=== PATIENT | male | born 1995 ===

== ENCOUNTER 2020-11-02 10:15 | Emergency (ER) | payer SELFPAY ==
[2020-11-02 10:26] VITALS: BP 140/86; PULSE 69; RESP 18; TEMP 36.8; O2SAT 97; BMI 24.3
--- NOTE | 2020-11-02 11:05 | ED_ITS ---
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 and is worried he will not be able to drive safely or do his work today, he has no numbness no weakness no paresthesias no radiation of pain, no other injury to his neck that he is aware of Related Data Previous Rx's Medication Instructions Recorded cyclobenzaprine 5 mg PO TID PRN #10 tab 11/02/20 ibuprofen 600 mg PO Q6H PRN #20 tab 11/02/20 Allergies Allergy/AdvReac Type Severity Reaction Status Date / Time No Known Allergies Allergy Verified 11/02/20 10:29 Review of Systems Review of Systems: Positive for neck pain Negatives are no headache no head injury no radiation of pain no numbness no weakness or paresthesias no chest pain no shortness of breath no difficulty breathing, no skin rash, no changes to bowel or bladder PMFSH Past Medical History Source: nursing notes reviewed Medical History (Updated 11/02/20 @ 11:09 by BEKAH Palmer) No known health problems Social History Social History Advance Directives: Yes Advance Directives Information Provided: Yes Advance Directives on File: No Physical Exam Vital Signs: Vital Signs: Last Vital Signs Temp 98.3 F 11/02/20 10:26 Pulse 69 11/02/20 10:26 Resp 18 11/02/20 10:26 BP 140/86 H 11/02/20 10:26 Pulse Ox 97 11/02/20 10:26 Body Mass Index 24.3 General appearance uncomfortable no acute distress A&O x3 cooperative The head is normocephalic Nimesh dramatic The neck had left-sided soft tissue tenderness in the lateral neck muscles as well as in the trapezius there is no bony tenderness, range of motion is limited by pain, there is no swelling no redness, skin is normal in appearance Chest is clear to auscultation bilaterally, no respiratory distress Extremities is full range of motion x4, gait is normal, undercar specialist strength is 5/5 in both hands and sensation is intact in both hands Skin no rash Neuro no focal deficit motor is 5 over 5 times for sensation is intact and symmetrical Course Course Course Narrative: Patient is treated for neck spasm and neck muscle strain and given a work note for a couple of days Discharge Plan Discharge Clinical Impression: Strain of neck muscle Qualifiers: Encounter type: initial encounter Qualified Code(s): S16.1XXA - Strain of muscle, fascia and tendon at neck level, initial encounter Patient Disposition: Home, Self-Care Additional Instructions: Neck strain is usually self-limited and gets better in a few days If needed you can follow with chiropractor or see primary care doctor for physical therapy referral The muscle relaxer can cause you to become drowsy so do not drive for 8 hours after taking it In addition to prescribe medicine extra-strength Tylenol can be helpful , available [id number] Return any time any concerns Prescriptions: New cyclobenzaprine 5 mg tablet 5 mg PO TID PRN (Reason: muscle spasm) Qty: 10 RF: 0 ibuprofen 600 mg tablet 600 mg PO Q6H PRN (Reason: pain) Qty: 20 RF: 0 Stand Alone Forms: Work/School Release Interventions: ED Discharge Assessment Last Done: 11/02/20 11:20
[2020-11-02] MEDS: Acetaminophen 325 MG TABLET 650 MG PO (11:16)
[2020-11-02] MEDS: Ketorolac Tromethamine 30 MG/ML VIAL IM (11:17)
== END 2020-11-02 11:23 | disposition home or self-care (01) ==
PROVIDERS: Emergency Provider Emergency Medicine
DX: S16.1XXA Strain of muscle, fascia and tendon at neck level, initial encounter (principal); X50.1XXA Overexertion from prolonged static or awkward postures, initial encounter; Y93.84 Activity, sleeping; Y92.013 Bedroom of single-family (private) house as the place of occurrence of the external cause; Y99.9 Unspecified external cause status
CPT/HCPCS: 96372; 99283; 99284; J1885

== ENCOUNTER 2020-11-30 10:43 | Outpatient (REF) | payer OTHER, SELFPAY | END 2020-11-30 10:44 | disposition home or self-care (01) | LOC: HO.LAB 10:43 | PROVIDERS: Visit Provider Internal Medicine | DX: Z20.822 Contact with and (suspected) exposure to COVID-19 (principal) | CPT/HCPCS: 36415; C9803; U0003; U0005 ==

== ENCOUNTER 2020-12-15 10:24 | Emergency (ER) | payer SELFPAY ==
--- NOTE | ~2020-12-15 | XR_ITS ---
EXAMINATION: XR CHEST CLINICAL INFORMATION: Shortness of breath. Covid positive. COMPARISON: Previous chest x-ray January 2013 TECHNIQUE: Frontal view of the chest was obtained. FINDINGS: No significant abnormality is noted involving the heart, lungs, mediastinum, bony thorax or soft tissues. XR/XR chest 1V IMPRESSION: Unremarkable examination.
--- NOTE | 2020-12-15 10:43 | ED.CHESTPAIN ---
HPI - Chest Pain General Chief Complaint: Dyspnea Stated Complaint: sob Time Seen by Provider: 12/15/20 10:43 Source: patient Mode of arrival: ambulatory Limitations: no limitations History of Present Illness HPI narrative: Was COVID positive 14 days ago, still with chest pain and shortness of breath complaint: chest pain Onset (ago): day(s) Timing of current episode: constant Onset: during rest Pain location: left chest Pain radiation: none Severity: mild Quality: tightness Related Data Previous Rx's Medication Instructions Recorded cyclobenzaprine 5 mg PO TID PRN #10 tab 11/02/20 ibuprofen 600 mg PO Q6H PRN #20 tab 11/02/20 Allergies Allergy/AdvReac Type Severity Reaction Status Date / Time No Known Allergies Allergy Verified 11/02/20 10:29 Review of Systems Constitutional: Constitutional: Reports no additional constitutional complaints Eyes: Eyes: Reports no additional eye complaints ENT: Denies dizziness Cardiovascular: Cardiovascular: Reports no additional cardiovascular complaints Respiratory: Respiratory: Reports as per HPI Gastrointestinal: Gastrointestinal: Reports no additional gastrointestinal complaints Musculoskeletal: Musculoskeletal: Reports no additional musculoskeletal complaints Integumentary/Breasts: Skin/Breast: Denies rash Neurologic: Reports system reviewed and no additional complaints, except as documented, Denies dizziness and Denies Sensory deficit (Neuro) Psychiatric: Psychiatric: Denies anxiety PMFSH Past Medical History Medical History No known health problems Social History Social History Smoking Status: Never smoker Use of substances other than those prescribed or required for medical reasons: No Advance Directives: Yes Advance Directives Information Provided: No Advance Directives on File: No Physical Exam Vital Signs: Vital Signs: Last Vital Signs Temp 98.5 F 12/15/20 10:46 Pulse 80 12/15/20 10:46 Resp 17 12/15/20 10:46 BP 118/76 12/15/20 10:46 Pulse Ox 98 12/15/20 10:46 Body Mass Index 28.7 Const: General: healthy appearing Nutritional Appearance: average body habitus Orientation/consciousness: oriented to person and patient oriented x3 Limitations: no limitations HENMT: Head: Yes normal to inspection Ears: external ears normal General nose exam: Normal external nose present Mouth: Normal oral and palatal mucosa present and oropharynx normal Throat: Yes posterior oropharynx normal Eyes: General: appearance normal, both eyes and all related structures Neck: Other: supple Neck: Yes normal visual inspection Chest: Chest palpation & inspection: normal inspection of the chest Resp: Auscultation: clear to auscultation bilaterally Cardio: Jugular venous distension: no JVD Rate: regular rate Rhythm: regular rhythm Heart sounds: S1 normal heart sound present and S2 normal heart sound present GI: Inspection: Yes normal to inspection Palpation (GI): Soft to palpation, nontender and No hepatosplenomegaly present Auscultation: normal bowel sounds : General: Yes no CVA tenderness Back/Spine/Pelvis: Back: no CVA tenderness Skin: General skin exam: no rashes or lesions noted Neuro: General: oriented to person and patient oriented x3 Cranial nerves: Yes CN's II-XII intact bilaterally Motor exam (neuro): 5/5 motor strength present throughout Sensory Exam: No Sensory deficit (Neuro) Extrem: General: Yes normal to inspection Psych: Appearance: grossly normal MDM - Chest Pain Imaging Data Chest x-ray: Radiologist's impression: no infiltrate ECG Data ECG #1: Attestation: I personally reviewed and interpreted this ECG as follows: Interpretation: normal sinus rate 70, no st or twave changes Discharge Plan Discharge Clinical Impression: 2019 novel coronavirus disease (COVID-19) Patient Disposition: Home, Self-Care Additional Instructions: Patient is 14 days post quarantine, may return to work Prescriptions: No Action cyclobenzaprine 5 mg tablet 5 mg PO TID PRN (Reason: muscle spasm) Qty: 10 RF: 0 ibuprofen 600 mg tablet 600 mg PO Q6H PRN (Reason: pain) Qty: 20 RF: 0
--- NOTE | 2020-12-15 10:44 | ECG_ITS ---
Test Reason : CEST TIGHTNESS Blood Pressure : / mmHG Vent. Rate : 071 BPM Atrial Rate : 071 BPM P-R Int : 116 ms QRS Dur : 094 ms QT Int : 362 ms P-R-T Axes : 021 044 041 degrees QTc Int : 393 ms Normal sinus rhythm Normal ECG No previous ECGs available Referred By: Harjit Meng Electronically Signed By:JUAN PISANO MD
[2020-12-15 10:46] VITALS: BP 118/76; PULSE 80; RESP 17; TEMP 36.9; O2SAT 98; BMI 28.7
== END 2020-12-15 12:16 | disposition home or self-care (01) ==
PROVIDERS: Emergency Provider Emergency Medicine
DX: R07.9 Chest pain, unspecified (principal); Z86.16 Personal history of COVID-19
CPT/HCPCS: 71045; 93005; 99283; 99284

== ENCOUNTER 2023-04-08 13:05 | Emergency (ER) | payer MEDICAID, SELFPAY ==
[2023-04-08 13:23] VITALS: BP 136/88; PULSE 78; RESP 19; TEMP 36.5; O2SAT 98; BMI 31.3
--- NOTE | 2023-04-08 13:24 | ED_ITS ---
HPI - Ear Problem General Chief complaint: Ear Problems Stated complaint: r ear pain Time Seen by Provider: 04/08/23 13:31 Source: patient Mode of arrival: ambulatory History of Present Illness HPI Narrative: 27yo M w/no significant PMHx c/o right ear pain x 3 days. Admits was on vacation swimming in [place], ear now feels clogged. Has been using OTC drops without relief. Denies fever/chills, sore throat, hearing loss, drainage from ear MD Complaint: ear pain Location: right ear Related Data Previous Rx's Medication Instructions Recorded cyclobenzaprine 5 mg tablet 5 mg PO TID PRN muscle spasm #10 11/02/20 tabs ibuprofen 600 mg tablet 600 mg PO Q6H PRN pain #20 tabs 11/02/20 amoxicillin 875 mg-potassium 1 tab PO BID 7 days #14 tabs 04/08/23 clavulanate 125 mg tablet ciprofloxacin 0.3 %-dexamethasone 4 drp otic (ears) BID 7 days #7.5 04/08/23 0.1 % ear drops,suspension mL (Ciprodex) cefdinir 300 mg capsule 300 mg PO Q12H 10 days #20 caps 04/15/23 ibuprofen 600 mg tablet 600 mg PO Q8H PRN pain #20 tabs 04/15/23 Allergies Allergy/AdvReac Type Severity Reaction Status Date / Time No Known Allergies Allergy Verified 04/15/23 08:18 Review of Systems Review of Systems: Constitutional: No Fever, No Chills ENT/Mouth: + Ear Pain, No Nasal Congestion, No Sinus Pain, No Hoarseness, No sore throat, No Rhinorrhea, No Swallowing Difficulty Cardiovascular: No Chest Pain, No SOB Respiratory: No Cough, No Sputum, No Wheezing Musculoskeletal: No joint pain, No Myalgias, No Joint Swelling Skin: No Skin Lesions, No rash Neuro: No Weakness, Yes all other systems are reviewed and are negative Constitutional: Constitutional: Reports as per [facility] Past Medical History Attestation statement: The following information was validated with the patient. Source: old records reviewed Medical History No known health problems Social History Social History Advance Directives: No Physical Exam Vital Signs: Vital Signs: Last Vital Signs Temp 97.7 F 04/08/23 13:23 Pulse 78 04/08/23 13:23 Resp 19 04/08/23 13:23 BP 136/88 04/08/23 13:23 Pulse Ox 98 04/08/23 13:23 O2 Del Method Room Air 04/08/23 13:23 BMI result Body Mass Index 31.3 Const: General: cooperative, healthy appearing, no acute distress, alert and awake Orientation/consciousness: patient oriented x3 Limitations: no limitations HEENT: Head: Yes normal to inspection and Yes atraumatic Ears: hearing grossly normal bilaterally, external ears normal, mastoids normal, Abnormal EAC present excessive cerumen on the right, erythema on the right, edema on the right and EAC tenderness on the right; no foreign body, external ear abnormal auricular tenderness on the right, hearing grossly not impaired and unable to visualize TM on the right General nose exam: Normal external nose present Face and sinus: Yes normal facial exam Mouth: Normal oral and palatal mucosa present Throat: Yes posterior oropharynx normal, Yes tonsils normal, Yes uvula midline and No peritonsillar mass Eyes: General: appearance normal, both eyes and all related structures EOM: EOMs intact bilaterally Neck: Neck: Yes normal visual inspection and Yes no meningeal signs Resp: Effort & Inspection: normal respiratory effort and no respiratory distress Cardio: Rate: regular rate Skin: Rashes: no rashes Wounds: no wounds Neuro: General: patient oriented x3, tone normal and no meningeal signs Gait exam (Neuro): Normal gait present Extrem: General: Yes normal to inspection Medical Decision Making Medical Decision Making MDM Narrative: 27yo M w/no significant PMHx c/o right ear pain x 3 days. On exam vital signs stable, NAD, nontoxic appearing, right ear with auricle/external tenderness, cerumen noted in canal, partially cleared with curette, canal edema noted. Mastoids WNL. Unable to fully clear cerumen impaction, patient states pain is deeper. With shared decision-making will treat for both otitis externa and media. Low suspicion for mastoiditis, chronic otitis externa, strep Plan: Topical and p.o. antibiotics Results discussed with patient including worrisome signs and symptoms and strict return precautions, and when to return to the emergency department. They verbalized understanding and feel safe for discharge at this time. Differential Diagnosis Differential Diagnoses: The differential diagnosis associated with the presentation includes As above Admission/Observation Consideration of admission/observation: Escalation of care including admission/observation considered Tests considered The following testing was considered but not selected: As above Discharge Plan Discharge Clinical Impression: Otitis externa, Otitis media Patient Disposition: Home, Self-Care Instructions: Otitis Externa (DC), Ear Infection (ED) Additional Instructions: Augmentin as an oral antibiotic please take as prescribed. Ciprodex are antibiotic drops Take Tylenol /Motrin for pain Avoid water in the ear If symptoms persist or worsening of copious drainage from the ear, fever chills return to the ED Prescriptions: New ciprofloxacin-dexamethasone [Ciprodex] 0.3-0.1 % drops,suspension 4 drp otic (ears) BID 7 Days Qty: 7.5 0RF amoxicillin-pot clavulanate 875-125 mg tablet 1 tab PO BID 7 Days Qty: 14 0RF No Action cyclobenzaprine 5 mg tablet 5 mg PO TID PRN (Reason: muscle spasm) Qty: 10 0RF ibuprofen 600 mg tablet 600 mg PO Q6H PRN (Reason: pain) Qty: 20 0RF cefdinir 300 mg capsule 300 mg PO Q12H 10 Days Qty: 20 0RF ibuprofen 600 mg tablet 600 mg PO Q8H PRN (Reason: pain) Qty: 20 0RF Referrals: Physician,Unknown J [Physician] - 3 days Interventions: ED Discharge Assessment Last Done: 04/08/23 13:37 Discharge Date/Time: 04/08/23 13:45
== END 2023-04-08 13:45 | disposition home or self-care (01) ==
LOC: HO.ED 13:38
PROVIDERS: Emergency Provider Emergency Medicine
DX: H60.91 Unspecified otitis externa, right ear (principal); H66.91 Otitis media, unspecified, right ear; H92.01 Otalgia, right ear
CPT/HCPCS: 99283

== ENCOUNTER 2023-04-11 07:08 | Emergency (ER) | payer MEDICAID, SELFPAY ==
[2023-04-11 07:13] VITALS: BP 137/86; PULSE 110; RESP 19; TEMP 37; O2SAT 98; BMI 31.2
--- NOTE | 2023-04-11 07:33 | ED.GENADULT ---
HPI - General Adult General Chief complaint: Ear Problems Stated complaint: R Ear Pain ? Infection Time Seen by Provider: 04/11/23 07:33 Source: patient Mode of arrival: ambulatory Limitations: no limitations History of Present Illness HPI narrative: Patient is a 27 year old assigned male at with a history of otitis media and otitis externa diagnosed on 04/08/2023 presenting to the emergency department today with continued right ear pain. Patient states that 3 days ago he was seen and diagnosed with otitis media and externa of the right ear and given drops and oral medication. Patient states that he has been using his medication as prescribed but continues to have right sided ear pain. Patient denies any dizziness, lightheadedness, abdominal pain, nausea, vomiting, fever, chills, blurry vision, double vision, loss of vision, chest pain, difficulty breathing, shortness of breath, back pain, night sweats, pain with urination, increased urinary frequency, increased urinary urgency, blood in his urine or stool, syncope or a near syncopal episode, recent trauma or falls, bowel incontinence, bladder incontinence, bowel retention, bladder retention, or any other complaints at this time. Onset (ago): day(s) Location: right (ear) Radiation: non-radiation Severity: mild Severity scale (1-10): 3 Quality: aching and dull Pain Consistency: constant Relieving factors: none Exacerbating factors: none Associated symptoms: denies other symptoms Treatments prior to arrival: other (antibiotic drops and oral antibiotic) Related Data Previous Rx's Medication Instructions Recorded cyclobenzaprine 5 mg tablet 5 mg PO TID PRN muscle spasm #10 11/02/20 tabs ibuprofen 600 mg tablet 600 mg PO Q6H PRN pain #20 tabs 11/02/20 amoxicillin 875 mg-potassium 1 tab PO BID 7 days #14 tabs 04/08/23 clavulanate 125 mg tablet ciprofloxacin 0.3 %-dexamethasone 4 drp otic (ears) BID 7 days #7.5 04/08/23 0.1 % ear drops,suspension mL (Ciprodex) Allergies Allergy/AdvReac Type Severity Reaction Status Date / Time No Known Allergies Allergy Verified 04/11/23 07:13 Review of Systems Constitutional: Constitutional: Reports no additional constitutional complaints, Denies chills, Denies fever(s) and Denies night sweats Eyes: Eyes: Reports no additional eye complaints, Denies blurry vision, Denies change in vision, Denies diplopia, Denies eye discharge, Denies loss of vision and Denies eye pain ENT: Denies dizziness Comments: right ear pain Cardiovascular: Cardiovascular: Reports no additional cardiovascular complaints, Denies chest pain, Denies lightheadedness, Denies Loss of Consciousness and Denies dyspnea Respiratory: Respiratory: Reports no additional respiratory complaints and Denies dyspnea Gastrointestinal: Gastrointestinal: Reports no additional gastrointestinal complaints, Denies abdominal pain, Denies melena, Denies hematochezia, Denies change in bowel habits and Denies change in stool character Genitourinary: Genitourinary: Reports no additional male genitourinary complaints, Denies hematuria, Denies oliguria, Denies difficulty urinating, Denies dysuria, Denies urinary frequency, Denies urinary hesitancy, Denies urinary incontinence and Denies urinary urgency Musculoskeletal: Musculoskeletal: Reports no additional musculoskeletal complaints, Denies numbness and Denies tingling Neurologic: Denies dizziness, Denies loss of vision, Denies numbness and Denies tingling Psychiatric: Psychiatric: Reports no additional psychiatric complaints Endocrine: Endocrine: Reports no additional endocrine complaints Hematologic/Lymphatic: Hematologic/Lymphatic: Reports no additional hematologic/lymphatic complaints Allergic/Immunologic: Allergic/Immunologic: Reports no additional allergic/immunologic complaints PMFSH Past Medical History Attestation statement: The following information was validated with the patient. Source: old records reviewed and nursing notes reviewed Medical History (Updated 04/11/23 @ 09:49 by BEKAH Dave) No known health problems Social History Social History Advance Directives: No Advance Directives Information Provided: No Physical Exam ED Vital Signs: Vital Signs - 24 hr 04/11/23 07:13 Temperature 98.6 F Pulse Rate 110 H Respiratory Rate 19 Blood Pressure 137/86 Pulse Oximetry 98 BMI result Body Mass Index 31.2 Const General: cooperative, no acute distress, alert and awake Nutritional Appearance: well nourished Orientation/consciousness: patient oriented x3 Limitations: no limitations HENMT Head: Yes normal to inspection and Yes atraumatic Ears: hearing grossly normal bilaterally, external ears normal, Abnormal EAC present other (debris present in the right auditory canal) and TM abnormal erythematous on the right General nose exam: Normal external nose present, no nasal discharge noted and no epistaxis Face and sinus: Yes normal facial exam, No abrasion and No laceration Mouth: Normal oral and palatal mucosa present, no drooling and no muffled voice Eyes General: appearance normal, both eyes and all related structures Periorbital: periorbital findings normal Eyelids: Yes eyelids normal Conjunctivae: conjunctivae normal Pupils: Equal, round and reactive pupils present EOM: EOMs intact bilaterally Neck Neck: Yes normal visual inspection, Yes full ROM and Yes no lymphadenopathy Chest Chest palpation & inspection: normal inspection of the chest Resp Effort & Inspection: normal respiratory effort and able to speak in complete sentences GI Inspection: Yes normal to inspection Neuro General: patient oriented x3 and moves all extremities Cranial nerves: Yes Equal, round and reactive pupils present Cognition (Neuro): normal cognition Motor exam (neuro): 5/5 motor strength present throughout Sensory Exam: Normal double simultaneous stimulation for sensation Coordination: [id number] test normal Extrem General: Yes normal to inspection, Yes full ROM and Yes capillary refill normal Psych Appearance: grossly normal Mental Status: mental status grossly normal Affect: normal affect Attitude: cooperative Thought process: Normal thought process present Thought content: Normal thought content present Insight: Good insight present (Psych) Procedures Ear Wax Removal Right Ear: TM Examination: TM(s) erythematous Ear Canal Exam: atraumatic Patient Tolerated Procedure: well Complications: no problems Technique: ear canal irrigated Additional Comments: mixture of debris and cerumen removed from the right ear Medical Decision Making Medical Decision Making MDM Narrative: Patient is a 27 year old assigned male at with a history of otitis media and otitis externa of the right ear diagnosed on 04/08/2023 presenting to the emergency department today with persistent right ear pain. Patient's physical exam was as noted in the physical exam portion of this chart. Patient's exam is not consistent with mastoiditis or worsening ear infection. Patient's external and internal infection persists. Due to the debris in the patient's ear, there is concern the drops are not being as efficacious as they could be. Right ear debris was removed / flushed out, without incident. Patient tolerated the procedure well. I explained my physical exam findings to the patient. I answered all questions asked by the patient. I stressed the importance of the patient taking his medication as prescribed. I stressed the importance of the patient following up with his primary care provider and an ENT. I stressed the importance of the patient returning to the emergency department immediately if his symptoms were to worsen or if he were to develop any dizziness, shortness of breath, difficulty breathing, chest pain, blurry vision, loss of vision, nausea, vomiting, abdominal pain, fever, chills, back pain, or any other complaints. Patient verbalized agreement and understanding with this treatment plan and discharge. Differential Diagnosis Differential Diagnoses: The differential diagnosis associated with the presentation includes Otitis media Otitis externa Mastoiditis - not consistent with the patient's clinical presentation Prescription Management I considered prescription management with: Antibiotic (patient previously prescribed antibiotics - to continue on those.) Discharge Plan Discharge Clinical Impression: Otitis externa, Otitis media Patient Disposition: Home, Self-Care Instructions: Otitis Externa (DC), Ear Infection (ED) Additional Instructions: Continue taking your medication as prescribed. Follow up with your primary care provider and an ENT. Return to the emergency department immediately if your symptoms worsen or if you develop any dizziness, shortness of breath, difficulty breathing, chest pain, blurry vision, loss of vision, nausea, vomiting, abdominal pain, fever, chills, back pain, or any other complaints. Prescriptions: No Action cyclobenzaprine 5 mg tablet 5 mg PO TID PRN (Reason: muscle spasm) Qty: 10 0RF ibuprofen 600 mg tablet 600 mg PO Q6H PRN (Reason: pain) Qty: 20 0RF ciprofloxacin-dexamethasone [Ciprodex] 0.3-0.1 % drops,suspension 4 drp otic (ears) BID 7 Days Qty: 7.5 0RF amoxicillin-pot clavulanate 875-125 mg tablet 1 tab PO BID 7 Days Qty: 14 0RF Referrals: [facility] [Provider Group] (Call to establish and follow up with an ENT. ) [facility] [Provider Group] (Call to establish and follow up with a primary care provider. If you already have a primary care provider, please follow up with them.) [facility] [Provider Group] (Call to establish and follow up with a primary care provider. If you already have a primary care provider, please follow up with them.) [facility] Primary [facility] [Provider Group] (Call to establish and follow up with a primary care provider. If you already have a primary care provider, please follow up with them.) Stand Alone Forms: Work/School Release Interventions: ED Discharge Assessment Last Done: 04/11/23 09:01 Discharge Date/Time: 04/11/23 09:03 Print Language: Lao
--- NOTE | 2023-04-11 08:57 | PC.NURSE ---
reviewed discharge instructions with pt.
== END 2023-04-11 09:03 | disposition home or self-care (01) ==
PROVIDERS: Emergency Provider Emergency Medicine Emergency Medical Services
DX: H60.91 Unspecified otitis externa, right ear (principal); H66.91 Otitis media, unspecified, right ear
CPT/HCPCS: 99283; 99284

== ENCOUNTER 2023-04-15 08:05 | Emergency (ER) | payer MEDICAID, SELFPAY ==
--- NOTE | ~2023-04-15 | CT_ITS ---
EXAMINATION: CT INNER EAR TEMPORAL BONES CLINICAL INFORMATION: Right ear infection. Worsening pain. Tenderness. COMPARISON: None available. TECHNIQUE: Multidetector helical imaging was performed in the axial plane with generation of oblique axial and coronal reformatted projections. This CT examination was performed using dose optimization techniques as appropriate, variously including the following: *Automated exposure control. *Adjustment of mA and/or kV according to patient size (this includes techniques or standardized protocols for targeted exams where dose is matched to indication/reason for exam; i.e. extremities or head). *Use of iterative reconstruction technique. DLP: 250 mGy-cm FINDINGS: Right Temporal Bone: No overt periauricular soft tissue edema/collection. Near complete opacification of the right external auditory canal. Potential mild irregularity of the osseous structure of the external auditory canal without overt erosive changes. Minimal thickening of the tympanic membrane. The ossicular chain is intact. Mild mucosal thickening throughout the middle ear cavity. There is partial opacification of [place] space. The scutum remains sharp. The mastoid antrum remains patent. Moderate diffusion throughout the remaining mastoid air cells. The sigmoid plate is intact. Normal ossification of the bony labyrinth. Normal appearance of the cochlea, vestibule, and semicircular canals. The vestibular aqueduct is normal. Normal appearance of the labyrinthine, geniculate, tympanic, and mastoid segments of the facial nerve. Normal appearance of the internal auditory canal. The cochlear aperture is normal. Normal appearance of the carotid canal and jugular foramen. Left Temporal Bone: The external auditory canal is normal in appearance. The tympanic membrane is normal. The ossicular chain is intact. No soft tissue abnormality within the middle ear. The mastoid antrum and additional mastoid air cells remain well aerated. The sigmoid plate is intact. Normal ossification of the bony labyrinth. Normal appearance of the cochlea, vestibule, and semicircular canals. The vestibular aqueduct is normal. Normal appearance of the labyrinthine, geniculate, tympanic, and mastoid segments of the facial nerve. Normal appearance of the internal auditory canal. The cochlear aperture is normal. Normal appearance of the carotid canal and jugular foramen. Other: The temporomandibular joints are normal in appearance bilaterally. No demonstrated intracranial abnormalities of the visualized skull base. No significant abnormalities of the visualized orbits. The visualized paranasal sinuses are clear. No abnormal contours of the visualized pharynx. CT/CT mastoid IMPRESSION: 1. Near complete opacification of the right external auditory canal. Potential mild irregularity of the osseous structure of the right external auditory canal without overt erosive change. Mild mucosal thickening throughout the right middle ear cavity. Moderate right-sided mastoid effusion. Findings are suggestive of sequela of nonspecific otitis externa and media. 2. Normal CT appearance of the left-sided temporal bone.
[2023-04-15 08:18] VITALS: BP 118/83; PULSE 72; RESP 16; TEMP 36.6; O2SAT 98; BMI 31.7
[2023-04-15] MEDS: NaPROXEN 500 MG TABLET PO (09:56)
[2023-04-15 09:58] LABS: MANUAL DIFF FLAG NO
[2023-04-15 10:00] LABS: Basophils Percent Auto 0.6 % (0-2); Eosinophils Absolute Auto 0.3 X10*3/uL (0.0-0.4); Eosinophils Percent Auto 4.7 % (0-4); Hematocrit 45.1 % (42.0-52.0); Hemoglobin 14.8 g/dl (14.0-18.0); Imm Gran Abs Auto 0.04 X10*3/uL (0.00-0.03); Imm Gran Pct Auto 0.6 % (0.0-0.4); Lymphocytes Percent Auto 31.9 % (20-40); Mean Corpuscular HGB Conc 32.8 g/dl (31.0-36.0); Mean Corpuscular Hemoglobin 28.5 pg (27.0-33.0); Mean Corpuscular Volume 86.9 fL (80.0-98.0); Mean Platelet Volume 9.6 fL (9.4-12.4); Monocytes Absolute Auto 0.7 X10*3/uL (0.1-1.2); Monocytes Percent Auto 11.7 % (2-11); Neutrophils Absolute Auto 3.1 x10*3/uL (2.0-8.3); Neutrophils Percent Auto 50.5 % (45-73); Platelet Count 248 X10*3/uL (160-400); Red Blood Count 5.19 X10*6/uL (4.60-5.80); Red Cell Distribution Width 13.3 % (11.0-16.0); White Blood Count 6.2 X10*3/uL (4.8-10.8)
[2023-04-15 10:10] LABS: Anion Gap 13 (12-20); Blood Urea Nitrogen 12 mg/dL (9-16); C Reactive Protein 0.14 mg/dL (< or = 0.50); Calcium 9.1 mg/dL (8.4-10.2); Carbon Dioxide 24 mmol/L (22-29); Chloride 108 mmol/L (96-108); Creatinine Clr Calc Pharmacy 156.3; Estimated Glomerular Filt Rate > 60; Glucose Random 98 mg/dL (60-115); Potassium 4.2 mmol/L (3.3-5.1); Sodium 141 mmol/L (135-145)
--- NOTE | 2023-04-15 10:47 | ED.EAR ---
HPI - Ear Problem General Chief complaint: Ear Problems Stated complaint: Ear pain Time Seen by Provider: 04/15/23 09:04 Source: patient Mode of arrival: ambulatory Limitations: no limitations History of Present Illness HPI Narrative: patient is a 27 year male presents emergency department for re-evaluation of persistent right ear pain. He was seen in the emergency department 04/08/2023 and 04/11/2023 and diagnosed with acute otitis media / otitis externa. He has completed a 7 day course of Augmentin in addition to Ciprodex ear drops without any improvement in symptoms. He reports increased pain to the right ear that he feels extending into his jaw. Denies any drainage from the ear. Reports muffled hearing. Denies fevers or chills. Denies any neck pain, chest pain, shortness of breath, difficulty breathing. Denies any URI symptoms. Related Data Previous Rx's Medication Instructions Recorded cyclobenzaprine 5 mg tablet 5 mg PO TID PRN muscle spasm #10 11/02/20 tabs ibuprofen 600 mg tablet 600 mg PO Q6H PRN pain #20 tabs 11/02/20 amoxicillin 875 mg-potassium 1 tab PO BID 7 days #14 tabs 04/08/23 clavulanate 125 mg tablet ciprofloxacin 0.3 %-dexamethasone 4 drp otic (ears) BID 7 days #7.5 04/08/23 0.1 % ear drops,suspension mL (Ciprodex) cefdinir 300 mg capsule 300 mg PO Q12H 10 days #20 caps 04/15/23 ibuprofen 600 mg tablet 600 mg PO Q8H PRN pain #20 tabs 04/15/23 Allergies Allergy/AdvReac Type Severity Reaction Status Date / Time No Known Allergies Allergy Verified 04/15/23 08:18 Review of Systems Review of Systems: Constitutional: No weight loss. No fever. No chills. No weakness. No fatigue. Eye: No swelling. No redness. ENT: No sore throat. No rhinorrhea. No nasal congestion. No sore throat. No difficulty swallowing. Positive ear pain as per HPI Skin: No rash. No itching. Cardiovascular: No chest pain. No chest pressure. No palpitations. No pedal edema. Respiratory: No shortness of breath. No cough. No sputum production. Gastrointestinal: No nausea. No vomiting. No diarrhea. No abdominal pain. Genitourinary: No burning micturition. No urinary frequency. Neurologic: No headache. No dizziness.. No numbness. No tingling. Musculoskeletal: No muscle pain. No back pain. No joint pain. No stiffness. Lymphatics: No enlarged lymph nodes. Yes all other systems are reviewed and are negative [facility] Past Medical History Attestation statement: The following information was validated with the patient. Source: old records reviewed Medical History No known health problems Social History Social History Advance Directives: No Physical Exam Vital Signs: Vital Signs: Last Vital Signs Temp 97.1 F 04/15/23 11:31 Pulse 65 04/15/23 11:31 Resp 15 04/15/23 11:31 BP 119/73 04/15/23 11:31 Pulse Ox 98 04/15/23 11:31 O2 Del Method Room Air 04/15/23 11:31 BMI result Body Mass Index 31.7 Appearance: Alert.?Oriented to person, place and time. No acute distress.?Normal affect. Eyes: Pupils equal, round and reactive to light.? ENT: Pharynx normal. right ear canal with copious bloody/purulent drainage. Unable to visualize TM. Tenderness upon palpation of the tragus and mastoid on the right. left TM is normal Neck: Normal inspection.? Neck supple.?? CVS: Heart sounds normal. Normal heart rate and rhythm.? Pulses normal.?? Respiratory: No respiratory distress.? Lung sounds clear to auscultation bilaterally?? Abdomen: Soft and non-tender. Skin: Skin warm and dry.? Normal skin color.? Extremities: No lower extremity edema.? Neuro: Moves all extremities spontaneously. Sensation intact bilaterally. CN II-XII intact. No focal neuro deficits. Ambulates with normal steady gait. Course Reevaluation(s) Reevaluation #1: CBC reveals no leukocytosis, ESR and CRP are within normal limits. BMP is unremarkable. CT imaging reveals potential mild irregularity of the osseous structure of the right external canal without overt erosive change in finding suggestive of sequela of nonspecific otitis externa and media. at this time does not appear consistent with mastoiditis. Given he has completed a course of Augmentin without improvement will treat with cefdinir 300 mg twice daily for 10 days. In provided with contact information for ENT follow-up if symptoms are not improving. Reviewed worrisome signs and symptoms that would warrant re-evaluation in the emergency department. All questions answered. Stable for discharge. Time: 12:58 Medications Administered Discontinued Medications Generic Name Dose Route Start Last Admin Trade Name Naeemq PRN Reason Stop Dose Admin Naproxen 500 mg 04/15/23 09:42 04/15/23 09:56 Naproxen 500 Mg Tablet PO 04/15/23 09:43 500 mg ONCE ONE Administration Medical Decision Making Medical Decision Making [facility] Narrative: patient is a 27-year-old male who has been treated with 7 day course of Augmentin and Ciprodex drops for acute otitis externa and acute otitis media without any improvement in symptoms, in fact he reports worsening of the pain. He has mastoid tenderness upon palpation, concerning for mastoiditis. Will obtain CBC, CMP, ESR, CRP, CT of the mastoid for evaluation of bony erosion. Differential Diagnosis Differential Diagnoses: The differential diagnosis associated with the presentation includes ( acute otitis media, otitis externa, perforated TM, mastoiditis, malignant otitis externa) Admission/Observation Consideration of admission/observation: Escalation of care including admission/observation considered ( I considered admission for persistent right ear pain and concern for mastoiditis) Lab Data [facility] Lab Attestation statement: I reviewed the patient's lab results. ( see course narrative) 04/15/23 09:52 04/15/23 09:52 Labs: Lab Results 04/15/23 04/15/23 04/15/23 Range/Units 09:52 09:52 09:52 WBC 6.2 (4.8-10.8) X10*3/uL RBC 5.19 (4.60-5.80) X10*6/uL Hgb 14.8 (14.0-18.0) g/dl Hct 45.1 (42.0-52.0) % MCV 86.9 (80.0-98.0) fL MCH 28.5 (27.0-33.0) pg MCHC 32.8 (31.0-36.0) g/dl RDW 13.3 (11.0-16.0) % Plt Count 248 (160-400) X10*3/uL MPV 9.6 (9.4-12.4) fL Immature Gran % (Auto) 0.6 H (0.0-0.4) % Neut % (Auto) 50.5 (45-73) % Lymph % (Auto) 31.9 (20-40) % [place] % (Auto) 11.7 H (2-11) % Eos % (Auto) 4.7 H (0-4) % Baso % (Auto) 0.6 (0-2) % Lymph # (Auto) 2.0 (1.2-4.9) X10*3/uL [place] # (Auto) 0.7 (0.1-1.2) X10*3/uL Eos # (Auto) 0.3 (0.0-0.4) X10*3/uL Baso # (Auto) 0.0 (0.0-0.2) X10*3/uL Abs Immat Gran (auto) 0.04 H (0.00-0.03) X10*3/uL Absolute Neuts (auto) 3.1 (2.0-8.3) x10*3/uL Absolute Nucleated RBC 0.000 (0.0-0.012) X10*3/uL Nucleated RBC % (auto) 0.0 (0.0-0.2) /100WBC ESR 2 (0-15) MM/HR Sodium 141 (135-145) mmol/L Potassium 4.2 (3.3-5.1) mmol/L Chloride 108 (96-108) mmol/L Carbon Dioxide 24 (22-29) mmol/L Anion Gap 13 (12-20) BUN 12 (9-16) mg/dL Creatinine 0.85 (0.5-1.4) mg/dL Estim Creat Clear Calc 156.3 Estimated GFR > 60 Random Glucose 98 (60-115) mg/dL Calcium 9.1 (8.4-10.2) mg/dL C-Reactive Protein 0.14 (< or = 0.50) mg/dL Radiology Impression Discussion of test interpretation with radiology: I have reviewed the radiologist's reading. Radiologist Impression: CT/CT mastoid IMPRESSION: 1.? Near complete opacification of the right external auditory canal. Potential mild irregularity of the osseous structure of the right external auditory canal without overt erosive change. Mild mucosal thickening throughout the right middle ear cavity. Moderate right-sided mastoid effusion. Findings are suggestive of sequela of nonspecific otitis externa and media. 2.? Normal CT appearance of the left-sided temporal bone. Prescription Management I considered prescription management with: Antibiotic Discharge Plan Discharge Clinical Impression: Otitis media, Otitis externa Patient Disposition: Home, Self-Care Instructions: Otitis Externa (ED), Ear Infection (ED) Additional Instructions: a prescription for new antibiotic was sent to your pharmacy; cefdinir, please complete this entire course. I provided contact information for the billet shearer, you may follow-up with their office and/or your primary care provider. You may return back to emergency department with any new or worsening symptoms or concerns Prescriptions: New cefdinir 300 mg capsule 300 mg PO Q12H 10 Days Qty: 20 0RF ibuprofen 600 mg tablet 600 mg PO Q8H PRN (Reason: pain) Qty: 20 0RF No Action cyclobenzaprine 5 mg tablet 5 mg PO TID PRN (Reason: muscle spasm) Qty: 10 0RF ibuprofen 600 mg tablet 600 mg PO Q6H PRN (Reason: pain) Qty: 20 0RF ciprofloxacin-dexamethasone [Ciprodex] 0.3-0.1 % drops,suspension 4 drp otic (ears) BID 7 Days Qty: 7.5 0RF amoxicillin-pot clavulanate 875-125 mg tablet 1 tab PO BID 7 Days Qty: 14 0RF Referrals: Smith Simental [Physician] - Physician,None [Primary Care Provider] - Interventions: ED Discharge Assessment Last Done: 04/15/23 13:22 Discharge Date/Time: 04/15/23 13:58
[2023-04-15 10:51] LABS: Erythrocyte Sedimentation Rate 2 MM/HR (0-15)
[2023-04-15 11:31] VITALS: BP 119/73; PULSE 65; RESP 15; TEMP 36.2; O2SAT 98
== END 2023-04-15 13:58 | disposition home or self-care (01) ==
PROVIDERS: Nurse Practitioner Family; Emergency Provider Student in an Organized Health Care Education/Training Program
DX: H60.91 Unspecified otitis externa, right ear (principal); H66.91 Otitis media, unspecified, right ear
CPT/HCPCS: 36415; 70481; 80048; 85025; 85652; 86140; 99284

== ENCOUNTER 2024-05-07 09:39 | Outpatient (AMB) | payer OTHER, SELFPAY ==
[2024-05-07 09:44] VITALS: BP 114/76; PULSE 60; O2SAT 98; BMI 30.7
--- NOTE | 2024-05-07 09:44 | A.OFFPC_ITS ---
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 Development Scientist Required: No Allergies No Known Allergies Allergy (Verified 05/07/24 10:03) Medication List - Last Reconciled 05/07/24 by Meghan Leach PA-C No Known Home Meds Tobacco use date assessed: 05/07/24 Dental Screening Dental Screen Date: 05/07/24 Did you have a dental visit in the last 12 months?: No Did you have a dental problem in the last 6 months where you did not have access to dental care?: No Was dental information given to patient?: Patient has dentist HPI 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 In review of the notes, patient was seen in [facility] 3 separate times in April 2023 for otitis media and otitis externa. Patient states he has a skin tag on his back and would like to be referred to dermatology for removal. He also mentions he has a fungal infection on his right toes which has been present for the past year. He also mentions when he eats he has right upper quadrant pain which typically subsides after having a bowel movement which is typically diarrhea. He also mentions he had diarrhea this morning after having pizza last night. Otherwise he has no acute concerns today. Previously seen by primary care several years ago and requesting those records. [facility] Medical History (Updated 05/07/24 @ 10:27 by Meghan Leach PA-C) No known health problems Surgical History (Updated 05/07/24 @ 10:04 by Meghan Leach PA-C) Hx of appendectomy Family History (Updated 05/07/24 @ 10:05 by Meghan Leach PA-C) Father Renal cancer Paternal Grandfather Renal cancer Social History Housing: House Patient Tobacco Use Status: Current someday Tobacco user e-Cigarette/Vaping Use: Never Used service: No Current occupational status: employed Current occupation: self employed Cognitive needs: No Hearing needs: No Vision needs: No Questionnaire PHQ-9 Over the last 2 weeks, how often have you been bothered by any of the following problems? 1. Little interest or pleasure in doing things: not at all 2. Feeling down, depressed, or hopeless: not at all 3. Trouble falling or staying asleep, or sleeping too much: not at all 4. Feeling tired or having little energy: not at all 5. Poor appetite or overeating: not at all 6. Feeling bad about yourself - or that you are a failure or have let yourself or your family down: not at all 7. Trouble concentrating on things, such as reading the newspaper or watching television: not at all 8. Moving or speaking so slowly that other people could have noticed. Or the opposite - being so fidgety or restless that you have been moving around a lot more than usual: not at all 9. Thoughts that you would be better off or of hurting yourself in some way: not at all Total score: 0 Depression Screening Interpretation: Negative Depression Screening Done: Yes 99715 - PHQ-9 Billing: Yes Source: Developed by Drs. Rafael Duran, Maris Mack, Christopher Iqbal and colleagues, with an educational stanislaw from [employer]. Thrive Questionnaire Date Thrive assessed: 05/07/24 I am a: Patient What is your living situation today?: I have a steady place to live Within the past 12 months, did the food you bought not last and you didn't have the money to get more?: Never true Within the past 12 months, did you worry whether your food would run out before you got money to buy more?: Never true Do you have trouble paying for medicines?: No Do you have trouble getting transportation to medical appointments?: No Do you have trouble paying your heating and electricity bill?: No Do you have trouble taking care of your child, family member or friend?: No Do you have trouble with day-to-day activities such as bathing, preparing meals, shopping, managing finances, etc.?: No Are you currently unemployed and looking for a job?: No Are you interested in more education?: No Please select the resources that you would like help with: Housing/Skilled Nursing Currently or been in a relationship where the following occur: No concerns reported THRIVE Score: 0 AUDIT C Alcohol Use Questionnaire (AUDIT-C) 1. How often do you have a drink containing alcohol?: Monthly or less 2. How many drinks containing alcohol do you have on a typical day when you are drinking?: 3 or 4 3. How often do you have six or more drinks on one occasion?: Less than monthly Total Score: 3 MARIA-7 AMB Questionnaire MARIA-7 Date MARIA - 7 assessed: 05/07/24 Feeling nervous, anxious, or on edge: 0 = Not at all Not being able to stop or control worryin = Not at all Worrying too much about different things: 0 = Not at all Trouble relaxin = Not at all Being so restless that it is hard to sit still: 0 = Not at all Becoming easily annoyed or irritable: 0 = Not at all Feeling afraid as if something awful might happen: 0 = Not at all Total MARIA-7 score (0-4 normal; 5-9 mild; 10-14 moderate; 15-21 severe): 0 Source: Developed by Drs. Rafael Duran, Maris Mack, Christopher Iqbal and colleagues, with an educational stanislaw from [employer]. MARIA-7 Assessment Billing MARIA-7 Assessment Tool: MARIA-7 Assessment 83049 Review of Systems Const Denies body aches, Denies fatigue, Denies fever(s), Denies frequent falls, Denies headache(s) and Denies weakness Eyes Reports no additional complaints and Denies change in vision ENT Denies dysphagia, Denies dizziness, Denies facial pain, Denies headache(s), Denies nasal congestion and Denies odynophagia Card Denies chest pain, Denies syncope, Denies irregular heart rhythm, Denies leg edema, Denies lightheadedness and Denies dyspnea Resp Denies cough and Denies dyspnea GI Reports as per HPI, Denies constipation, Denies dysphagia, Denies dyspepsia, Denies heartburn, Reports diarrhea, Denies nausea, Denies odynophagia and Denies vomiting Denies dysuria, Denies urinary frequency, Denies urinary hesitancy and Denies urinary urgency Musc Denies back pain and Denies myalgias Skin/Breast Reports system reviewed and no additional complaints, except as documented Neuro Denies dizziness, Denies syncope, Denies frequent falls, Denies headache(s) and Denies weakness Psych Reports no additional complaints Endo Denies fatigue Physical exam (Primary Care) Vital Signs: Last Vital Signs Pulse 60 05/07/24 09:44 BP 114/76 05/07/24 09:44 Pulse Ox 98 05/07/24 09:44 Oxygen Delivery Method Room Air 05/07/24 09:44 BMI result Body Mass Index 30.7 Tobacco/Smoking Status: Tobacco use Status Tobacco use date assessed 05/07/24 05/07/24 09:45 Patient Tobacco Use Status Current someday Tobacco 05/07/24 09:52 Are you ready to quit: No Tobacco cessation counseling provided: Yes Items discussed: Other CPT code: Less than 3 minutes PHQ-9: PHQ-9 Score PHQ-9: Total score 0 05/07/24 09:57 Depression Screening Interpretation: Negative Thrive Assessment: Date of Thrive Assessment Date Thrive assessed 05/07/24 05/07/24 09:45 Currently or been in a relationship where the following occur: No concerns reported Const General: cooperative, healthy appearing, comfortable and no acute distress Orientation/consciousness: patient oriented x3 HENMT Head: Yes normocephalic Ears: hearing grossly normal bilaterally, external ears normal, TM's normal bilaterally and Abnormal EAC present excessive cerumen bilateral General nose exam: Normal external nose present Face and sinus: Yes normal facial exam and Yes sinuses nontender Mouth: Normal oral and palatal mucosa present and tongue normal Throat: Yes posterior oropharynx normal Eyes General: appearance normal, both eyes and all related structures Conjunctivae: conjunctivae normal Pupils: Equal, round and reactive pupils present EOM: EOMs intact bilaterally and No Nystagmus present Neck Neck: Yes normal visual inspection, Yes full ROM and Yes no lymphadenopathy Chest Chest palpation & inspection: normal inspection of the chest Resp Effort & Inspection: normal respiratory effort Auscultation: clear to auscultation bilaterally, no crackles, no rales, no rhonchi, no wheezes and breath sounds present Cardio Rate: regular rate Rhythm: regular rhythm Peripheral pulses: radial pulses present and dorsalis pedis present GI Inspection: Yes normal to inspection and No Abdominal wall edema Palpation (GI): Soft to palpation, not firm, Tenderness to palpation present (GI) (Tenderness to palpation in right upper quadrant and left lower quadrant), no guarding, not rigid and No Rebound tenderness present Auscultation: normal bowel sounds Rectal Exam - Male: Yes deferred General: Yes no CVA tenderness Back/Spine/Pelvis Back: no CVA tenderness Skin General skin exam: no rashes or lesions noted Neuro General: patient oriented x3 Cranial nerves: Yes Equal, round and reactive pupils present, Yes Midline tongue present, Yes Ability to bilaterally elevate shoulders present and No Nystagmus present Gait exam (Neuro): Normal gait present Extrem General: Yes normal to inspection, Yes full ROM, No no pedal edema and No edema Psych Speech and movement: Normal speech and movement present Affect: normal affect Insight: Good insight present (Psych) Judgement: Good judgement present (Psych) Assessment and Plan Assessment & Plan (1) Skin tag: Code(s): L91.8 - Other hypertrophic disorders of the skin Plan: Referral to dermatology. (2) Biliary colic symptom: Code(s): K80.50 - Calculus of bile duct without cholangitis or cholecystitis without obstruction Plan: Patient's right upper quadrant pain is most consistent with biliary colic due to location and timing of the pain. We will order abdominal ultrasound to evaluate and follow up in 3 months. Avoid foods high in fat. (3) Toenail fungus: Code(s): B35.1 - Tinea unguium Plan: Patient appears to have toenail fungus on the right great toe and right ring toe. He has not tried anything for his symptoms which have been present for the past year. We will trial [id number] antifungals while we wait for blood work. Can consider terbinafine if liver functions are within normal limits. (4) Annual physical exam: Code(s): Z00.00 - Encounter for general adult medical examination without abnormal findings Plan: Patient is up-to-date for all recommended screenings and vaccinations for his age. Updated blood work ordered for today. Follow up in 3 months after ultraso und of abdomen. Plan This note was constructed using voice recognition software. While every effort has been made to ensure accuracy and engine lathe operator, still areas may have been included sometimes these areas may affect the content or meeting of the given symptoms. Total time spent caring for the patient today was 40 minutes. This includes time spent before the visit reviewing the chart, time spent during the visit, and time spent after the visit and documentation. Orders: Orders Comprehensive Met. Panel Today Z00.00 - Encounter for general adult medical examination without abnormal findings TSH reflex Free T4 Today Z00.00 - Encounter for general adult medical examination without abnormal findings Vitamin D 25-OH (D2 and D3) Today Z00.00 - Encounter for general adult medical examination without abnormal findings US abdomen complete Today K80.50 - Calculus of bile duct without cholangitis or cholecystitis without obstruction Complete Blood Count Auto Diff Today Z00.00 - Encounter for general adult medical examination without abnormal findings Free T4 (Free Thyroxine) Today Z00.00 - Encounter for general adult medical examination without abnormal findings Lipid Panel Today Z00.00 - Encounter for general adult medical examination without abnormal findings Vitamin B12 and Folate Today Z00.00 - Encounter for general adult medical examination without abnormal findings Referrals Dermatology Referral L91.8 - Other hypertrophic disorders of the skin Coding Level of Care Code New Pt Prev Care 18-39yr([id number] Diagnoses Skin tag L91.8 Biliary colic symptom K80.50 Toenail fungus B35.1 Annual physical exam Z00.00 Additional Codes MARIA-7 Assessment Billing - MARIA-7 Assessment Tool: MARIA-7 Assessment 05457 ([id number])
== END 2024-05-07 10:23 | disposition home or self-care (01) ==
DX: Z00.00 Encounter for general adult medical examination without abnormal findings (principal); L91.8 Other hypertrophic disorders of the skin; K80.50 Calculus of bile duct without cholangitis or cholecystitis without obstruction; B35.1 Tinea unguium
CPT/HCPCS: 99385

== ENCOUNTER 2024-10-24 14:26 | Emergency (ER) | payer OTHER, SELFPAY ==
--- OUTSIDE RECORDS SUMMARY | 2024-10-24 18:56 | XMS_ITS | Encounter Summary ---
Author Organization [facility] Address [address] [place] [address] Phone Care Team Providers Care Operating Room Assistant Name Role Phone April Snowden MD Primary Care Provider [phone] Encounter Details Date Type Department Care Team (Late st Contact Info) Description 07/29/2013 Conversion Encounter [facility] [place] [address] [place] [address] April Snowden MD [address] [place] [address] Social History Tobacco Use Types Packs/Day Years Used Date Smoking Tobacco: Never Assessed Sex and Gender Information Value Date Recorded Sex Assigned at Not on file Legal Sex Male 4:52 PM EDT Gender Identity Not on file Sexual Orientation Not on file documented as of this encounter Plan of Treatment Not on file documented as of this encounter Visit Diagnoses Not on filedocumented in this encounter Care Teams Operating Room Assistant Relationship Specialty Start Date End Date April Snowden MD [address] [place] [address] PCP - General 05/12/17 12/14/22 documented as of this encounter
--- OUTSIDE RECORDS SUMMARY | 2024-10-24 18:56 | XMS_ITS | Clinical Summary ---
Author Organization [facility] Address [address] [place] [id number] Phone Care Team Providers Care Associate Program Manager Name Role Phone Unavailable Primary Care Provider Unavailabl e Allergies No known active allergies Medications loratadine (CLARITIN) 10 MG tabletIndicatio ns:Acute seasonal allergic rhinitis due to pollen Take 1 tablet (10 mg total) by mouth daily. 30 tablet 5 7 Active fluticasone (FLONASE) 50 MCG/ACT nasal sprayIndication s:Acute seasonal allergic rhinitis due to pollen Administer 1 spray into each nostril daily. 1 Units 5 7 Active Active Problems Problem Noted Date Diagnosed Date Lactose intolerance 02/02/2010 Immunizations Name Administration Dates Next Due DTaP 5 01/03/2001, 8,06/30/1997,04/29,02/27/1997 H1N1 08/24/2009 HPV, Quadrivalent 02/19/2014,03/11/2013,01/04/20 13 Hep A, Adult 08/22/2016 Hep A, ped/adol 02/19/2014 Hep B, ped/adol 12/01/1997,02/27/1997,1996 Hib (PRP-T) 03/30/1998, 7,04/29/1997,02/27 IPV 01/03/2001 Influenza Split 01/03/2013,06/09/2011,09/15/2010 Influenza, injectable, quadr ivalent, preservative free 09/19/2018,07/06/2017,08/22/2016 Influenza, injectable, trivalent 10/28/2009,07/03,10/25/2007 MMR 01/03/2001,03/30/1998 Meningococcal Conj (Menactra) MCV4P 08/22/2016,0 10/27/2008 OPV 06/30/1997,04/29/1997,02/27/1997 Tdap 09/19/2018,10/27/2008 Varicella 10/27/2008,03/30/1998 Family History Medical History Relation Name Comments No Known Problems Father Diabetes Maternal Grandfather Hypertension Maternal Grandmother No Known Problems Mother Diabetes Paternal Grandmother Hypertension Paternal Grandmother Relation Name Status Comments Brother Brother: Asthma Father Alive Half-Brother Alive adoptive brothe r: Alive and well Maternal Grandfather Alive Maternal Grandmother Alive Mother Alive Paternal Grandfather Paternal Grandmother Alive Social History Tobacco Use Types Packs/Day Years Used Date Smoking Tobacco: Never Smokeless Tobacco: Never Comments:Never smoker Alcohol Use Standard Drinks/Week Comments No 0 (1 standard drink = 0.6 oz pure alcohol) Has tried in past but does like Hunger/Food Answer Date Recorded No 10/20/2018 Stable Housing Answer Date Recorded 0 10/20/2018 Transportation Concerns Answer Date Rec orded No 10/20/2018 Hazards in Home Answer Date Recorded No 10/20/2018 Financing Utilities Answer Date Recorde d No 10/20/2018 Safety at Home Answer Date Recorded No 10/20/2018 Outside Support Answer Date Recorded No 10/20/2018 Understanding Health Concerns Answer Da te Recorded No 10/20/2018 Financing Health Concerns Answer Date R ecorded No 10/20/2018 Missing School or Work Answer Date Christian rded No 10/20/2018 Sex and Gender Information Value Date Recorded Sex Assigned at Not on file Legal Sex Male 4:52 PM EDT Gender Identity Not on file Sexual Orientation Not on file Last Filed Vital Signs Vital Sign Reading Time Taken Comments Blood Pressure 118/74 09/19/2018 10:32 AM EST Pulse 67 09/19/2018 10:32 AM EST Temperature 36.7 ??C (98.1 ??F) 09/19/2018 10:[address] Respiratory Rate - - Oxygen Saturation - - Inhaled Oxygen Concentration - - Weight 82.8 kg (182 lb 9.6 oz) 09/19/2018 10:32 AM EST Height 176.5 cm (5' 9.5 ) 09/19/2018 10:32 AM ES T Body Mass Index 26.58 09/19/2018 10:32 AM EST Plan of Treatment Health Maintenance Due Date Last Done Comments Consider Men B Vaccine (1 of 2 - Bexsero 2-dose series) 2012 Influenza Vaccines (#1) 2024 09/19/20 18, 07/06/2017, 08/22/2016, Additional history exists COVID-19 Vaccine ( season) 2024 DTaP,Tdap,and Td Vaccines (8 - Td or Tdap) 09/19/2028 09/19/2018, 10/27/2008, 01/03/2001, Additional history exists Hepatitis B Vaccines Completed 12/01/1997, 02/27/1997, 1996 HIB Vaccines Completed 03/30/1998, 06/03, 04/29/1997, Additional history exists IPV Vaccines Completed 01/03/2001, 06/03, 04/29/1997, Additional history exists MMR Vaccines Completed 01/03/2001, 03/30/1998 Varicella Vaccines Completed 10/27/2008, 03/30/1998 HPV Vaccines Completed 02/19/2014, 03/02, 01/03/2013 Hepatitis A Vaccines Completed 08/22/2016, 02/20/20 14 Meningococcal Vaccine Aged Out 08/22/2016, 009 No longer eligible based on patient's age to complete this topic Men B Vaccine Aged Out No longer elig ible based on patient's age to complete this topic Pneumococcal Vaccine Aged Out No long er eligible based on patient's age to complete this topic Insurance [facility] H[facility]
--- OUTSIDE RECORDS SUMMARY | 2024-10-24 18:56 | XMS_ITS | Encounter Summary ---
Author Organization [facility] Address [address] [place] [address] Phone Care Team Providers Care Slice Plug Cutter Operator Helper Name Role Phone April Snowden MD Primary Care Provider Encounter Details Date Type Department Care Team (Late st Contact Info) Description 05/18/2017 Conversion Encounter [facility] [address] [place] [address] Social History Tobacco Use Types Packs/Day Years Used Date Smoking Tobacco: Never Comments:Never smoker Sex and Gender Information Value Date Recorded Sex Assigned at Not on file Legal Sex Male 4:52 PM EDT Gender Identity Not on file Sexual Orientation Not on file documented as of this encounter Plan of Treatment Not on file documented as of this encounter Visit Diagnoses Not on filedocumented in this encounter Care Teams Slice Plug Cutter Operator Helper Relationship Specialty Start Date End Date April Snowden MD [address] [place] [address] PCP - General 05/12/17 12/14/22 documented as of this encounter
--- OUTSIDE RECORDS SUMMARY | 2024-10-24 18:56 | XMS_ITS | Encounter Summary ---
Author Organization [facility] Address [address] [place] [phone] Phone Care Team Providers Care Health Care Marketing Specialist Name Role Phone April Snowden MD Primary Care Provider [phone] Encounter Details Date Type Department Care Team (Late st Contact Info) Description 09/21/2012 Documentation [facility] [place] Family Medicine [address] [place] [address] Family Medicine, Physician [address] [place], [place] [id number] Social History Tobacco Use Types Packs/Day Years [...] on filedocumented in this encounter Care Teams Health Care Marketing Specialist Relationship Specialty Start Date End Date April Snowden MD [address] [place] [id number] PCP - General 05/12/17 12/14/22 documented as of this encounter
--- OUTSIDE RECORDS SUMMARY | 2024-10-24 18:56 | XMS_ITS | Encounter Summary ---
Author Organization [facility] Address [address] [place] [phone] Phone Care Team Providers Care Wildlife Photographer Name Role Phone April Snowden MD Primary Care Provider [phone] Encounter Details Date Type Department Care Team (Late st Contact Info) Description 02/19/2013 Documentation [facility] [place] Family Medicine [address] [place] [address] Family Medicine, Physician [address] [place], [place] [id number] Social History Tobacco Use Types Packs/Day Years [...] on filedocumented in this encounter Care Teams Wildlife Photographer Relationship Specialty Start Date End Date April Snowden MD [address] [place] [id number] PCP - General 05/12/17 12/14/22 documented as of this encounter
== END 2024-10-24 16:24 | disposition left against medical advice (07) ==
PROVIDERS: Emergency Provider Emergency Medicine Emergency Medical Services; PCP Internal Medicine
DX: R10.9 Unspecified abdominal pain (principal); Z53.21 Procedure and treatment not carried out due to patient leaving prior to being seen by health care provider